=== PATIENT | male | born 2005 | race Caucasian/White ===

== ENCOUNTER 2024-06-22 13:57 | Emergency (ER) | payer OTHER, SELFPAY ==
[2024-06-22 14:54] VITALS: BP 122/69; PULSE 76; RESP 16; TEMP 36.8; O2SAT 100; BMI 17.7
--- NOTE | 2024-06-22 15:43 | ED_ITS ---
HPI - Male Genitourinary General Chief complaint: Urogenital-Male Stated complaint: poss kidney stone Time Seen by Provider: 06/22/24 15:14 History of Present Illness HPI Narrative: Mr. Renner is a pleasant 18-year-old male with no reported past medical history who presents to the emergency department for dysuria x2 days. Patient states over the last 2 days he has had some burning with urination in the urethra during the entire urinary stream. He denies frequency, discharge, drainage, lesions, blood. Denies abdominal pain, flank pain, nausea, vomiting, diarrhea, constipation, fevers. Reports that about 1 year ago he did have some similar symptoms but there was blood in his urine at that time and he was treated for urinary tract infection. States that he is currently sexually active with 1 female partner and would like to be tested for STDs. He took 1 dose of AZ0 last night which did not improve the pain. He does have 1 small bump on his groin region within the pubic hair, but no skin changes on the penis or testicles. Related Data Previous Rx's Medication Instructions Recorded cephalexin 500 mg capsule 500 mg PO QID 7 days #28 caps 06/22/24 Allergies Allergy/AdvReac Type Severity Reaction Status Date / Time No Known Drug Allergies Allergy Verified 06/22/24 14:54 Review of Systems Review of Systems ROS Unobtainable: All systems reviewed & are unremarkable except as noted in HPI and below Patient History Social History Smoking Status: Current every day smoker Smoking Status: Current every day smoker tobacco type: vaping Exam Narrative Exam Narrative: GENERAL: 18 year old patient appears stated age. Well-developed patient, in no acute distress. HEAD: Atraumatic. Normocephalic. NECK: Trachea midline. Cervical ROM intact. CARDIOVASCULAR: Regular rate and rhythm. RESPIRATORY: ?Nonlabored respirations. ?Speaking in clear, full sentences. ?Clear to auscultation. Breath sounds equal bilaterally. No wheezes, rales, or rhonchi. ? GASTROINTESTINAL: Abdomen soft, non-tender, nondistended. Normal BS. 1mm papule on lower abd within pubic hair. Gu exam deferred. EXTREMITIES: No edema or joint tenderness. BACK: No CVA tenderness. NEURO: AOx3. ?Clear speech. ?Moves all 4 extremities appropriately. SKIN: No rash or erythema of visible areas Initial Vital Signs Initial Vital Signs: Vital Signs Temperature 98.2 F 06/22/24 14:54 Pulse Rate 76 06/22/24 14:54 Respiratory Rate 16 06/22/24 14:54 Blood Pressure 122/69 06/22/24 14:54 Pulse Oximetry 100 06/22/24 14:54 Oxygen Delivery Method Room Air 06/22/24 14:54 Course Orders Ordered: ED Orders 06/22/24 16:00 Chlamydia Gonorrhea PCR -URINE Stat 06/22/24 16:03 Urine Culture Stat Urine Microscopic Stat Discontinued Medications Cephalexin HCl (Cephalexin 250 Mg Capsule) 500 mg PO NOW ONE Stop: 06/22/24 18:09 Last Admin: 06/22/24 18:18 Dose: 500 mg Documented By: SHERYL Ondansetron HCl (Ondansetron 4 Mg/2 Ml Inj) 4 mg IV NOW PRN PRN Reason: Nausea And Vomiting Ondansetron HCl (Ondansetron 4 Mg Odt) 4 mg SL NOW PRN PRN Reason: Nausea And Vomiting Last Admin: 06/22/24 18:18 Dose: 4 mg Documented By: SHERYL Vital Signs Vital signs: Vital Signs - 8 hr 06/22/24 14:54 Temperature 98.2 F Pulse Rate 76 Respiratory Rate 16 Blood Pressure 122/69 Pulse Oximetry 100 Oxygen Delivery Method Room Air MDM - Male Genitourinary Medical Records Attestation: I reviewed the patient's medical records. Lab Data Labs: Lab Results 06/22/24 06/22/24 Range/Units 16:00 16:03 Urine RBC 1-5/hpf (0-5/HPF) Urine WBC 1-5/hpf (0-5/HPF) Ur Squamous Epith Cells None seen (0-5/HPF) Urine Bacteria Few (2-10) H (None) Ur Culture Indicated? Cult not indicated Vol Urine Centrifuged 10ml (spun) Ur Chlamydia DNA (PCR) Not detected N gonorrhoeae DNA (PCR) Not detected MDM Narrative Medical decision making narrative: 18-year-old male with no reported past medical history who presents to the emergency department for dysuria x2 days. Differential diagnosis includes but is not limited to UTI, urethritis, STD, nephrolithiasis, etc. On exam patient is in no acute distress, nontoxic appearing, vital signs within normal limits, abdomen soft and nontender, no CVA tenderness flank tenderness or hematuria. We will check urinalysis clean and GC chlamydia dirty then proceed. He has having no abdominal pain or flank pain or other symptoms concerning for with a need for emergent imaging at this time. Gonorrhea/chlamydia negative. Urinalysis with few bacteria, 1-5 RBC, 1-5 WBC. Urine was sent for culture. We will urinalysis is not overly concerning, given patient's symptoms after shared decision-making we will treat as likely early UTI with cephalexin p.o. 4 times a day x7 days. I did encourage patient to follow up with the urologist for further evaluation given this is now his 2nd urinary tract infection. We discussed strict ED return precautions. Verbalized understanding of all information is agreeable to the plan, he is stable for discharge home. Discharge Plan Departure Patient Disposition: Home Clinical Impression: Urethritis Instructions: DI for Urinary Tract Infection (UTI) Activity Restrictions/Additional Instructions: Thank you for coming to the emergency department. Today you were evaluated for burning with urination. You tested negative for gonorrhea and chlamydia. Your urinalysis did show few bacteria, urine white blood cells, urine red blood cells. Because of your symptoms I would like to treat you as potential urinary tract infection, please complete the full course of antibiotics and use [id number] AZO if needed for discomfort. Please follow up with your primary care doctor, also recommend that you do follow up with the urologist such as [facility] Dr. Gardiner for further evaluation of the possible cause of your urinary tract infection. Return to the emergency department if you develop pain, bleeding, fevers or any other concerns. Please follow up with your primary care doctor within the next 2-3 days for ER follow-up. (If you do not have a PCP you can call [phone]. ?to schedule an appointment with an [facility] Primary Care Provider) IF YOU DEVELOP ANY NEW OR WORSENING SYMPTOMS, RETURN TO THE ER! Please read the attached instructions, they highlight more specific treatments and interventions for you at home. Thank you for letting me participate in your care, Karen Esparza PA-C Prescriptions: New cephalexin 500 mg capsule 500 mg PO QID 7 Days Qty: 28 0RF Referrals: [facility] [Primary Care Provider] - Stand Alone Forms: Patient Portal/API/Survey
[2024-06-22 17:03] LABS: Bacteria Urine Few (2-10); Culture Indicated Urine Cult Not Indicated; RBC Urine 1-5/HPF (0-5/HPF); Squamous Epithelial Cell Urine None Seen (0-5/HPF); Urine Volume 10mL (spun); WBC Urine 1-5/HPF (0-5/HPF)
[2024-06-22 18:00] LABS: Urine N gonorrhoeae NOT DETECTED
[2024-06-22 18:02] LABS: Urine Chlamydia NOT DETECTED
[2024-06-22] MEDS: ONDANSETRON 4 MG ODT SL (18:18)
[2024-06-22] MEDS: cephALEXin 250 MG CAPSULE 500 MG PO (18:18)
== END 2024-06-22 18:20 | disposition home or self-care (01) ==
PROVIDERS: Emergency Provider Physician Assistant
DX: N34.2 Other urethritis (principal)
CPT/HCPCS: 81015; 87086; 87491; 87591; 99283